=== PATIENT | female | born 1955 | race Caucasian/White ===

== ENCOUNTER 2021-02-06 12:26 | Emergency (ER) | payer OTHER | END 2021-02-06 16:54 | disposition home or self-care (01) | LOC: ER1 12:26 | DX: S29.012A Strain of muscle and tendon of back wall of thorax, initial encounter (principal); S39.012A Strain of muscle, fascia and tendon of lower back, initial encounter; S80.01XA Contusion of right knee, initial encounter; F17.200 Nicotine dependence, unspecified, uncomplicated; V49.40XA Driver injured in collision with unspecified motor vehicles in traffic accident, initial encounter; Y92.410 Unspecified street and highway as the place of occurrence of the external cause | CPT/HCPCS: 72128; 72131; 73564; 99284; J1335 ==

== ENCOUNTER → 2021-09-30 | Outpatient (CLI) | payer MEDICARE, BC | LOC: KOH-I 14:21 | DX: M47.816 Spondylosis without myelopathy or radiculopathy, lumbar region (principal) | CPT/HCPCS: 72110 ==

== ENCOUNTER → 2021-11-06 | Outpatient (CLI) | payer MEDICARE, BC | LOC: KOH-I 13:36 | DX: M79.671 Pain in right foot (principal) | CPT/HCPCS: 73630 ==

== ENCOUNTER → 2021-11-18 | Outpatient (CLI) | payer MEDICARE, BC | LOC: KOH-I 10:19 | DX: S93.524D Sprain of metatarsophalangeal joint of right lesser toe(s), subsequent encounter (principal); M79.661 Pain in right lower leg; X58.XXXD Exposure to other specified factors, subsequent encounter | CPT/HCPCS: 73718; 93926 ==

== ENCOUNTER → 2021-12-09 | Outpatient (CLI) | payer MEDICARE, BC ==
[~2021-12-09] MED LIST: BIOTIN10 MG PO; CATAPRES 0.1MG0.1 MG PO; CYANOCOBAL1000 MCG/1 INJ; DICLOFENAC TOP; GABAPENTIN800 MG PO; HYDROCODON-ACE1 EAC4 PO; MELATONIN PO; RELAFEN750 MG PO; ROXICODONE TAB 55 MG PO; TOPIRAMATE50 MG PO; TYLENOL325 MG PO; ZANAFLEX 4 MG TA4 MG PO
[2021-12-09 10:07] LABS: HEMOGLOBIN 13.1 gm/dl (12.3-15.3); RED BLOOD COUNT 4.08 M/UL (4.00-5.10); WHITE BLOOD COUNT 8.7 K/UL (4.5-11.0)
[2021-12-09 10:48] LABS: BUN/CREATININE RATIO 13 (0-10)
== END ==
LOC: OPSV2 09:24
PROVIDERS: Podiatrist Foot & Ankle Surgery
DX: Z01.818 Encounter for other preprocedural examination (principal); Z88.5 Allergy status to narcotic agent
CPT/HCPCS: 36415; 80048; 85027; 93005; U0003

== ENCOUNTER → 2021-12-19 | Day surgery (SDC) | payer MEDICARE, BC ==
[~2021-12-19] VITALS: Ht 172.7 cm; Wt 62.1 kg
== END | disposition home or self-care (01) ==
LOC: OR 06:45
DX: M20.41 Other hammer toe(s) (acquired), right foot (principal); M24.271 Disorder of ligament, right ankle; S93.149A Subluxation of metatarsophalangeal joint of unspecified toe(s), initial encounter; G57.81 Other specified mononeuropathies of right lower limb; M77.41 Metatarsalgia, right foot; M20.5X1 Other deformities of toe(s) (acquired), right foot; M24.874 Other specific joint derangements of right foot, not elsewhere classified; M24.574 Contracture, right foot; M67.471 Ganglion, right ankle and foot; F17.210 Nicotine dependence, cigarettes, uncomplicated; I77.9 Disorder of arteries and arterioles, unspecified; Z20.822 Contact with and (suspected) exposure to COVID-19; Z88.6 Allergy status to analgesic agent; Z88.5 Allergy status to narcotic agent; X58.XXXA Exposure to other specified factors, initial encounter
CPT/HCPCS: 73620; 73630; 76000; C1713; J0171; J0690; J1100; J2001; J2405; J2704; J2795; J3010; J3370; J7120; Q4133

== ENCOUNTER → 2021-12-25 | Outpatient (CLI) | payer MEDICARE, BC | LOC: KOH-I 14:39 | DX: M79.671 Pain in right foot (principal); Z98.890 Other specified postprocedural states | CPT/HCPCS: 73630 ==

== ENCOUNTER → 2022-01-08 | Outpatient (CLI) | payer MEDICARE, BC | LOC: KOH-I 13:26 | DX: M79.671 Pain in right foot (principal) | CPT/HCPCS: 73630 ==

== ENCOUNTER → 2022-01-26 | Outpatient (CLI) | payer MEDICARE, BC | LOC: KOH-I 13:09 | DX: M79.671 Pain in right foot (principal); Z98.890 Other specified postprocedural states | CPT/HCPCS: 73630 ==

== ENCOUNTER → 2022-04-06 | Outpatient (CLI) | payer MEDICARE, BC | LOC: KOH-I 15:13 | DX: M79.671 Pain in right foot (principal) | CPT/HCPCS: 73630 ==